=== PATIENT | female | born 1995 | race Caucasian/White ===

== ENCOUNTER → 2018-05-28 08:19 | Outpatient (CLI) | payer SELFPAY ==
--- NOTE | 2018-05-28 | DI.US.S_ITS ---
LIMITED ULTRASOUND OF LEFT BREAST: 05/28/2018 CLINICAL: Palpable left breast lump x 4 months. No prior exams were available for comparison. Real-time and Doppler ultrasound of the left breast 1-2 o'clock region were performed. Lau scale images of the real-time examination were reviewed. There is 2.0 cm x 1.7 cm x 0.9 cm oval mass with a circumscribed margin in the left breast at 1:30 position 6 cm from the nipple. This oval mass is hypoechoic with posterior acoustic enhancement. This correlates as palpated. Color flow imaging demonstrates that there is internal vascularity present. Targeted ultrasound of the left axilla demonstrates morphologically normal lymph nodes. IMPRESSION: PROBABLY BENIGN The 2.0 cm x 1.7 cm x 0.9 cm oval mass in the left breast likely represents a fibroadenoma and is probably benign. There is no left axillary lymphadenopathy. A follow-up ultrasound in 6 months is recommended to demonstrate stability and to exclude a possible phyllodes tumor. The patient is advised to monitor her breasts and to return sooner for re-evaluation should she feel anything grow or change. This exam was interpreted at Station ID: [id number]. Electronically Signed By: Russ Astorga M.D. ecl/:05/28/2018 09:00:01 letter sent: Followup Recommended Ultrasound BI-RADS: 3 Probably benign
== END ==
PROVIDERS: PCP Nurse Practitioner Family; Visit Provider Nurse Practitioner Family
DX: N63.20 Unspecified lump in the left breast, unspecified quadrant (principal)
CPT/HCPCS: 76642